=== PATIENT | male | born 1955 | race Caucasian/White ===

== ENCOUNTER 2017-06-08 13:43 | Emergency (ER) | payer OTHER ==
[~2017-06-08] VITALS: Ht 172.7 cm; Wt 79.4 kg
[~2017-06-08 13:43] MED LIST: BUPR100 PO; BUPR150ER PO; BUPR150T2 PO; Bactrim Ds Tab1 EACH PO; CALCIUM + D SO1 EACH PO; CEPH500 PO; CRUTCH3 USE; DIAZ5 PO; DICL75ER; DIPATR PO; DIPH50 PO; Desyrel50 MG; FAMO40 PO; HYDACE5 PO; HYDCHLSU PO; HYDPAM50 PO; IBUP200 PO; IBUP600 PO; Keflex500 MG PO; MELO7.5 PO; METPRE4DP PO; MIRT15 PO; MUPI2TC TOP; Motion Sickness25 M1 PO; NAPR500 PO; Norco 5-325 Ta1 EACH PO; OXYACE5T PO; OXYC10TA19 PO; OXYC30 PO; Oxycodone HCl5 M1 PO; PRAM.125 PO; PROM25 PO; Pepcid20 MG PO; Percocet 10-321 EACH PO; Percocet 5-3251 EACH PO; Prednisone20 MG PO; RXOXYACE PO; Robaxin500 MG PO; SULTRIDS PO; SULTRISS; TRAM50 PO; TRAZ100 PO; TRAZ50 PO; Ultram50 MG PO; Vitamin D400 UNI1 PO; ZOLP5 PO; Zofran Odt4 MG PO; Zofran Odt4 MG SL
[2017-06-08] MEDS ORDERED: ERYT1OIN BOTHEYES (14:42)
[2017-06-08] MEDS ORDERED: Percocet 5-3251 EACH PO (14:42)
== END 2017-06-08 14:58 | disposition home or self-care (01) ==
LOC: ER 13:43
DX: T26.12XA Burn of cornea and conjunctival sac, left eye, initial encounter (principal); T26.11XA Burn of cornea and conjunctival sac, right eye, initial encounter; X16.XXXA Contact with hot heating appliances, radiators and pipes, initial encounter
CPT/HCPCS: 36415; 96374; 96375; 99284; J1170; J2405

== ENCOUNTER 2017-06-11 11:14 | Emergency (ER) | payer OTHER ==
[~2017-06-11] VITALS: Ht 172.7 cm; Wt 79.4 kg
[~2017-06-11 11:14] MED LIST changes: +ERYT1OIN BOTHEYES
[2017-06-11] MEDS ORDERED: TRAZ150T57 (11:48)
[2017-06-11] MEDS ORDERED: Ventolin/Prove6.7 GM (11:48)
[2017-06-11 11:54] LABS: BASOPHILS ABSOLUTE AUTO 0.08 K/mm3 (0.00-0.23); BASOPHILS PERCENT AUTO 1 % (0-2); EOSINOPHILS ABSOLUTE AUTO 0.11 K/mm3 (0.00-0.68); EOSINOPHILS PERCENT AUTO 2 % (0-6); Hemoglobin 14.2 g/dL (13.5-17.5); IMMATURE GRAN ABSOLUTE AUTO 0.07 K/mm3 (0.00-0.10); IMMATURE GRAN PERCENT AUTO 1 % (0-1); LYMPHOCYTES ABSOLUTE AUTO 1.19 K/mm3 (0.84-5.20); LYMPHOCYTES PERCENT AUTO 19 % (21-46); MONOCYTES ABSOLUTE AUTO 0.62 K/mm3 (0.16-1.47); MONOCYTES PERCENT AUTO 10 % (4-13); Mean Corpuscular HGB 30.3 pg (26.0-34.0); Mean Corpuscular HGB Conc 33.8 g/dL (31.5-36.5); Mean Corpuscular Volume 90 fL (80-100); Mean Platelet Volume 8.7 fL (9.1-12.4); NEUTROPHILS ABSOLUTE AUTO 4.15 K/mm3 (1.96-9.15); NEUTROPHILS PERCENT AUTO 67 % (41-73); Platelet Count 322 K/mm3 (150-400); RDW Coefficient Variation 12.5 % (11.7-14.2); RDW Standard Deviation 40.4 fL (35.1-46.3); Red Blood Cell Count 4.69 M/mm3 (4.30-5.90); White Blood Cell Count 6.22 K/mm3 (4.00-11.30)
[2017-06-11 12:21] LABS: Troponin I <0.015 ng/mL (0.000-0.040)
[2017-06-11 12:24] LABS: Alanine Aminotransfer (ALT/SGP 62 U/L (12-78); Albumin, Blood 3.8 g/dL (3.4-5.0); Alk Phos 54 U/L (50-136); Anion Gap 7 mmol/L (6-16); Aspartate Aminotrans (AST/SGOT 39 U/L (12-37); Bilirubin, Total 0.4 mg/dL (0.1-1.0); Blood Urea Nitrogen 17 mg/dL (8-24); CO2, Blood 26 mmol/L (21-32); Calcium, Blood 8.7 mg/dL (8.5-10.1); Chloride, Blood 103 mmol/L (98-108); Creatinine, Blood 1.06 mg/dL (0.60-1.20); Glomerular Filtration Rate >60 (60-); Glucose, Blood 84 mg/dL (70-99); Potassium, Blood 4.6 mmol/L (3.5-5.5); Sodium, Blood 136 mmol/L (136-145); Total Protein, Blood 7.8 g/dL (6.4-8.2)
[2017-06-11] MEDS ORDERED: BENZ100A PO (13:50)
== END 2017-06-11 13:58 | disposition home or self-care (01) ==
LOC: ER 11:14
PROVIDERS: Emergency Medicine
DX: J11.1 Influenza due to unidentified influenza virus with other respiratory manifestations (principal); Z88.8 Allergy status to other drugs, medicaments and biological substances; Z88.5 Allergy status to narcotic agent; Z79.899 Other long term (current) drug therapy; F43.10 Post-traumatic stress disorder, unspecified; Z87.891 Personal history of nicotine dependence
CPT/HCPCS: 36415; 71046; 80053; 84484; 85025; 93005; 93010; 99284

== ENCOUNTER 2017-07-14 19:21 | Emergency (ER) | payer OTHER ==
[~2017-07-14] VITALS: Ht 172.7 cm; Wt 79.4 kg
[~2017-07-14 19:21] MED LIST changes: +BENZ100A PO; +Ventolin/Prove6.7 GM
[2017-07-14] MEDS ORDERED: Naprosyn500 MG PO (21:22)
== END 2017-07-14 21:29 | disposition home or self-care (01) ==
LOC: ER 19:21
DX: S80.02XA Contusion of left knee, initial encounter (principal); Z88.8 Allergy status to other drugs, medicaments and biological substances; Z88.5 Allergy status to narcotic agent; Z88.6 Allergy status to analgesic agent; Z79.899 Other long term (current) drug therapy; Z86.14 Personal history of Methicillin resistant Staphylococcus aureus infection; Z87.891 Personal history of nicotine dependence; W22.8XXA Striking against or struck by other objects, initial encounter; Y99.0 Civilian activity done for income or pay
CPT/HCPCS: 73090; 73562-LT; 99283

== ENCOUNTER 2017-12-23 12:46 | Emergency (ER) | payer OTHER ==
[~2017-12-23] VITALS: Ht 175.3 cm; Wt 79.4 kg
[~2017-12-23 12:46] MED LIST changes: +Naprosyn500 MG PO; +TRAZ150T57
[2017-12-23] MEDS ORDERED: Percocet 5-3251 EACH PO (14:21)
== END 2017-12-23 14:26 | disposition home or self-care (01) ==
LOC: ER 12:46
DX: S89.92XA Unspecified injury of left lower leg, initial encounter (principal); M17.12 Unilateral primary osteoarthritis, left knee; Z88.8 Allergy status to other drugs, medicaments and biological substances; Z88.5 Allergy status to narcotic agent; Z88.6 Allergy status to analgesic agent; Z79.899 Other long term (current) drug therapy; Z87.891 Personal history of nicotine dependence; X58.XXXA Exposure to other specified factors, initial encounter
CPT/HCPCS: 73564; 99283-25

== ENCOUNTER 2018-01-13 14:31 | Emergency (ER) | payer OTHER ==
[~2018-01-13] VITALS: Ht 175.3 cm; Wt 77.1 kg
[2018-01-13] MEDS ORDERED: Crutch1 EACH MISC (15:53)
== END 2018-01-13 16:00 | disposition home or self-care (01) ==
LOC: ER 14:31
DX: S90.32XA Contusion of left foot, initial encounter (principal); Z88.8 Allergy status to other drugs, medicaments and biological substances; Z88.5 Allergy status to narcotic agent; Z79.899 Other long term (current) drug therapy; W22.8XXA Striking against or struck by other objects, initial encounter; F43.10 Post-traumatic stress disorder, unspecified; Z87.891 Personal history of nicotine dependence; R26.2 Difficulty in walking, not elsewhere classified
CPT/HCPCS: 73630; 96372; 99283-25; J3010

== ENCOUNTER 2018-05-20 15:51 | Emergency (ER) | payer OTHER ==
[~2018-05-20] VITALS: Ht 175.3 cm; Wt 79.4 kg
[~2018-05-20 15:51] MED LIST changes: +Crutch1 EACH MISC; -TRAZ150T57; +Tylenol325 MG PO
[2018-05-20] MEDS ORDERED: Neurontin 100100 MG PO (16:47)
[2018-05-20] MEDS ORDERED: Percocet 5-3251 EACH PO (16:51)
[2018-06-04] MEDS ORDERED: OXYC15ER PO (10:43)
== END 2018-05-20 16:58 | disposition home or self-care (01) ==
LOC: ER 15:51
DX: M25.562 Pain in left knee (principal); F43.10 Post-traumatic stress disorder, unspecified; F17.220 Nicotine dependence, chewing tobacco, uncomplicated; Z88.0 Allergy status to penicillin; Z88.8 Allergy status to other drugs, medicaments and biological substances; Z88.6 Allergy status to analgesic agent; Z79.899 Other long term (current) drug therapy
CPT/HCPCS: 73562-LT; 99283-25

== ENCOUNTER 2018-06-11 14:26 | Day surgery (SDC) | payer OTHER ==
[~2018-06-11] VITALS: Ht 175.3 cm; Wt 82.6 kg
[~2018-06-11 14:26] MED LIST changes: +Neurontin 100100 MG PO; +OXYC15ER PO
== END 2018-06-11 16:43 | disposition home or self-care (01) ==
LOC: ORSCSDS 14:26
PROVIDERS: Ophthalmology
PROC: 08RK3JZ Replacement of Left Lens with Synthetic Substitute, Percutaneous Approach (ICD-10-PCS; principal; 2018-06-11 16:00)
DX: H25.12 Age-related nuclear cataract, left eye (principal)
CPT/HCPCS: J2001; J2250; J3010; J7120; V2632

== ENCOUNTER 2018-08-09 14:52 | Emergency (ER) | payer OTHER ==
[~2018-08-09] VITALS: Ht 172.7 cm; Wt 77.1 kg
[2018-08-09] MEDS ORDERED: Floxin10 ML RIGHTEAR (15:25)
[2018-08-09] MEDS ORDERED: CEFD300 PO (15:25)
== END 2018-08-09 15:29 | disposition home or self-care (01) ==
LOC: ER 14:52
DX: H60.91 Unspecified otitis externa, right ear (principal); H66.91 Otitis media, unspecified, right ear; Z88.0 Allergy status to penicillin; Z88.8 Allergy status to other drugs, medicaments and biological substances; Z88.5 Allergy status to narcotic agent; Z79.899 Other long term (current) drug therapy; F43.10 Post-traumatic stress disorder, unspecified; Z87.891 Personal history of nicotine dependence
CPT/HCPCS: 96372; 99282-25; J1885

== ENCOUNTER → 2019-06-24 | Outpatient (CLI) | payer OTHER ==
[~2019-06-24] MED LIST changes: +CEFD300 PO; +Floxin10 ML RIGHTEAR
[2019-07-03 07:09] LABS: ANABASINE <1 ng/mL (.); COTININE <10 ng/mL (.); NICOTINE <10 ng/mL (.)
== END | disposition home or self-care (01) ==
LOC: LAB SHORT 12:02 → LAB 12:02
PROVIDERS: Orthopaedic Surgery
DX: Z09 Encounter for follow-up examination after completed treatment for conditions other than malignant neoplasm (principal); Z87.891 Personal history of nicotine dependence
CPT/HCPCS: G0480

== ENCOUNTER 2019-09-27 08:21 | Day surgery (SDC) | payer OTHER ==
[~2019-09-27 08:21] MED LIST changes: +ASCO500 PO; +FOLBIC RF TABL1 EACH PO; +Glucosamine &1 EACH PO; +MELA3 PO; +ROPI1 PO
== END 2019-09-27 13:20 | disposition home or self-care (01) ==
PROVIDERS: Orthopaedic Surgery
PROC: 01X40Z4 Transfer Ulnar Nerve to Ulnar Nerve, Open Approach (ICD-10-PCS; principal; 2019-09-27 10:00)
PROC: 01N50ZZ Release Median Nerve, Open Approach (ICD-10-PCS; principal; 2019-09-27 10:00)
DX: G56.01 Carpal tunnel syndrome, right upper limb (principal); G56.21 Lesion of ulnar nerve, right upper limb; Z87.891 Personal history of nicotine dependence; B19.20 Unspecified viral hepatitis C without hepatic coma; Z79.899 Other long term (current) drug therapy

== ENCOUNTER 2019-11-29 12:00 | Day surgery (SDC) | payer OTHER ==
[~2019-11-29] VITALS: Ht 175.3 cm; Wt 83.4 kg
--- NOTE | 2019-11-29 14:07 | NUR ---
11/29/19 1407 Ely Riley PT REQUESTED TO USE URINAL; PROVIDED. 175CC OUT.
--- NOTE | 2019-11-29 14:53 | NUR ---
11/29/19 1453 Ciera Vallejo TWO SMALL ABRASIONS ON DORSAL SIDE OF OPERATIVE HAND, DR. MANE NOTIFIED, PER DR FERNANDEZ TO CONTINUE.
--- NOTE | 2019-11-29 15:51 | NUR ---
11/29/19 9341 BernardoJessica randhawa AFTER GETTING DRESSED PT. VERBALIZED HIS LEFT HAND WAS HURTING "PRETTY BAD." PT. INSTRUCTED COULD GIVE HIM A PAIN PILL IF HE STAYED AT LEAST 20 MIN TO MAKE SURE HE WOULDN'T HAVE A REACTION BUT PT.'S RIDE WAS HERE & PT. JUST CONTINUED TO WALK OUT THE DOOR. PT. GIVEN ANOTHER CUP OF COFFEE FOR WAY HOME.
== END 2019-11-29 15:39 | disposition home or self-care (01) ==
LOC: ORSCSDS 12:00
PROVIDERS: Orthopaedic Surgery
PROC: 01N50ZZ Release Median Nerve, Open Approach (ICD-10-PCS; principal; 2019-11-29 13:25)
DX: G56.02 Carpal tunnel syndrome, left upper limb (principal); B19.20 Unspecified viral hepatitis C without hepatic coma; F41.8 Other specified anxiety disorders; Z79.899 Other long term (current) drug therapy; F17.220 Nicotine dependence, chewing tobacco, uncomplicated
CPT/HCPCS: J0690; J2250; J3010; J3370; J7120

== ENCOUNTER 2021-02-21 11:01 | Day surgery (SDC) | payer OTHER ==
--- NOTE | 2020-12-13 10:23 | NUR ---
Patient's procedure was canncelled by Doctor Bauer, patient was late ariving to the hospital.
[~2021-02-21] VITALS: Ht 175.3 cm; Wt 85.5 kg
[~2021-02-21 11:01] MED LIST changes: +BUPROPION HCL100 MG PO; +OXYC10ER PO
--- NOTE | 2021-02-21 11:36 | NUR ---
Ambulatory in Day Surgery History, Chart, Medications and Allergies reviewed before start of procedure. Lungs clear T/O to Auscultation. Patient confirms NPO status and agrees with scheduled surgery. Pre-Op teaching done. Pt verbalizes understanding.
--- NOTE | 2021-02-21 16:44 | NUR ---
02/21/21 1644 Violeta Jones STITCH REMOVED FROM LEFT PROXIMAL PALM OF HAND AT 1430. HAND WAS PREPPED WITH CHLORAHEXIDINE AND DRESSED WITH 4X4 AND GAUZE
--- NOTE | 2021-02-21 18:45 | NUR ---
ARRIVAL TO UNIT ARRIVES TO UNIT VIA HOSPITAL BED. C/O HIGH PAIN TO L BROWN. ISH WRAP TO L SHINT TO THIGH HAS NO DRAINAGE. PPP. CAP REFIL < 3 SECONDS. DENIES NUMB/TING. VSS.
[2021-02-22 04:10] LABS: BASOPHILS ABSOLUTE AUTO 0.02 K/mm3 (0.00-0.23); BASOPHILS PERCENT AUTO 0 % (0-2); EOSINOPHILS PERCENT AUTO 0 % (0-6); Hematocrit 34.1 % (37.0-53.0); Hemoglobin 11.8 g/dL (13.5-17.5); IMMATURE GRAN ABSOLUTE AUTO 0.07 K/mm3 (0.00-0.10); IMMATURE GRAN PERCENT AUTO 1 % (0-1); LYMPHOCYTES ABSOLUTE AUTO 0.68 K/mm3 (0.84-5.20); LYMPHOCYTES PERCENT AUTO 5 % (21-46); MONOCYTES ABSOLUTE AUTO 0.95 K/mm3 (0.16-1.47); MONOCYTES PERCENT AUTO 7 % (4-13); Mean Corpuscular HGB 30.9 pg (26.0-34.0); Mean Corpuscular HGB Conc 34.6 g/dL (31.5-36.5); Mean Corpuscular Volume 89 fL (80-100); Mean Platelet Volume 9.7 fL (9.1-12.4); NEUTROPHILS ABSOLUTE AUTO 12.61 K/mm3 (1.96-9.15); NEUTROPHILS PERCENT AUTO 88 % (41-73); Platelet Count 247 K/mm3 (150-400); RDW Coefficient Variation 12.5 % (11.7-14.2); RDW Standard Deviation 40.3 fL (35.1-46.3); Red Blood Cell Count 3.82 M/mm3 (4.30-5.90); White Blood Cell Count 14.33 K/mm3 (4.00-11.30)
[2021-02-22 04:28] LABS: Anion Gap 6 mmol/L (6-16); Blood Urea Nitrogen 20 mg/dL (8-24); Bun/Creatinine Ratio 16.7 (12.0-20.0); CO2, Blood 23 mmol/L (21-32); Calcium, Blood 8.3 mg/dL (8.5-10.1); Chloride, Blood 107 mmol/L (98-108); Glomerular Filtration Rate >60 (60-); Glucose, Blood 129 mg/dL (70-99); Potassium, Blood 4.6 mmol/L (3.5-5.5); Sodium, Blood 136 mmol/L (136-145)
--- NOTE | 2021-02-22 07:04 | NUR ---
PT IS A/OX3. ABLE TO MAKE HIS NEEDS KNOWN. NO EVENTS OVER NIGHT. VOIDS W/O DIFFICULTY. BT'S POS X4, HYPO. MEDICATED FOR NAUSEA W/PRN REGLAN AND PHENERGAN. GOOD RESULTS. MEDICATED FOR PAIN W/PRN IV DILAUDID AND OXY. GOOD RESULTS. BULKY DRSG TO LT KNEE/LLE CDI. EPIFANIO HOSE BILAT. BOOT SCD'S ON. POLAR PACK IN PLACE TO LT KNEE.
[2021-02-22] MEDS ORDERED: Aspir 8181 MG PO (07:42)
[2021-02-22] MEDS ORDERED: SULTRIDS PO (07:42)
[2021-02-22] MEDS ORDERED: OXYC5 PO (07:43)
== END 2021-02-22 16:50 | disposition home or self-care (01) ==
LOC: ORSCMMR 11:01 → SURS 18:17 → ORSCMMR 02-22 16:50
PROVIDERS: Orthopaedic Surgery
PROC: 8E0YXBZ Computer Assisted Procedure of Lower Extremity (ICD-10-PCS; principal; 2021-02-21 14:00)
PROC: 0SRD0J9 Replacement of Left Knee Joint with Synthetic Substitute, Cemented, Open Approach (ICD-10-PCS; principal; 2021-02-21 14:00)
PROC: 0SPD04Z Removal of Internal Fixation Device from Left Knee Joint, Open Approach (ICD-10-PCS; principal; 2021-02-21 14:00)
DX: M17.12 Unilateral primary osteoarthritis, left knee (principal); B19.20 Unspecified viral hepatitis C without hepatic coma; Z79.899 Other long term (current) drug therapy
CPT/HCPCS: 36415; 73560-LT; 80048; 83735; 85025; 94762; 97110; 97110-CQ; 97116; 97116-CQ; 97162; 97530-CQ; A9270; C1713; C1776; J0171; J0360; J0690; J0735; J1100; J1170; J1885; J2250; J2405; J2550; J2704; J2765; J2795; J3010; J3370; J7120

== ENCOUNTER 2022-05-08 14:26 | Emergency (ER) | payer OTHER ==
[~2022-05-08] VITALS: Ht 175.3 cm; Wt 79.4 kg
[~2022-05-08 14:26] MED LIST changes: +Aspir 8181 MG PO; +LIDO700A20 TOP; +OXYC5 PO
[2022-05-08 15:53] LABS: Influenza A, PCR NEGATIVE (NEGATIVE); Influenza B, PCR NEGATIVE (NEGATIVE); SARS-Cov-2 (COVID-19) PCR, MMC NEGATIVE (NEGATIVE)
[2022-05-08 16:27] LABS: Resp Syncytial Virus, PCR POSITIVE (NEGATIVE)
== END 2022-05-08 17:52 | disposition home or self-care (01) ==
LOC: ER 14:26
PROVIDERS: Physician Assistant
DX: R05.9 Cough, unspecified (principal); B97.4 Respiratory syncytial virus as the cause of diseases classified elsewhere; F17.220 Nicotine dependence, chewing tobacco, uncomplicated; Z79.899 Other long term (current) drug therapy; Z79.82 Long term (current) use of aspirin; Z88.0 Allergy status to penicillin; Z88.5 Allergy status to narcotic agent; Z88.8 Allergy status to other drugs, medicaments and biological substances; Z88.6 Allergy status to analgesic agent; Z20.822 Contact with and (suspected) exposure to COVID-19
CPT/HCPCS: 0241U; 96372; 99283; J1885

== ENCOUNTER → 2022-05-22 | Outpatient (CLI) | payer MEDICARE ==
[2022-05-22 14:54] LABS: BASOPHILS ABSOLUTE AUTO 0.07 K/mm3 (0.00-0.23); BASOPHILS PERCENT AUTO 1 % (0-2); EOSINOPHILS ABSOLUTE AUTO 0.18 K/mm3 (0.00-0.68); EOSINOPHILS PERCENT AUTO 3 % (0-6); Hematocrit 43.1 % (37.0-53.0); Hemoglobin 14.8 g/dL (13.5-17.5); IMMATURE GRAN ABSOLUTE AUTO 0.02 K/mm3 (0.00-0.10); IMMATURE GRAN PERCENT AUTO 0 % (0-1); LYMPHOCYTES ABSOLUTE AUTO 1.16 K/mm3 (0.84-5.20); LYMPHOCYTES PERCENT AUTO 18 % (21-46); MONOCYTES PERCENT AUTO 8 % (4-13); Mean Corpuscular HGB 30.7 pg (26.0-34.0); Mean Corpuscular HGB Conc 34.3 g/dL (31.5-36.5); Mean Corpuscular Volume 89 fL (80-100); Mean Platelet Volume 10.3 fL (9.1-12.4); NEUTROPHILS ABSOLUTE AUTO 4.52 K/mm3 (1.96-9.15); NEUTROPHILS PERCENT AUTO 70 % (41-73); Platelet Count 307 K/mm3 (150-400); RDW Coefficient Variation 12.3 % (11.7-14.2); RDW Standard Deviation 40.7 fL (35.1-46.3); Red Blood Cell Count 4.82 M/mm3 (4.30-5.90); White Blood Cell Count 6.45 K/mm3 (4.00-11.30)
[2022-05-22 15:51] LABS: Alanine Aminotransfer (ALT/SGP 24 U/L (12-78); Alk Phos 66 U/L (50-136); Anion Gap 6 mmol/L (6-16); Aspartate Aminotrans (AST/SGOT 15 U/L (12-37); Bilirubin, Total 0.3 mg/dL (0.1-1.0); Blood Urea Nitrogen 16 mg/dL (8-24); Bun/Creatinine Ratio 15.8 (12.0-20.0); CO2, Blood 25 mmol/L (21-32); Calcium, Blood 9.3 mg/dL (8.5-10.1); Chloride, Blood 110 mmol/L (98-108); Cholesterol 158 mg/dL (50-200); Creatinine, Blood 1.01 mg/dL (0.60-1.20); Globulin, Blood 4.1 g/dL (2.2-4.0); Glomerular Filtration Rate 83 (60-); Glucose, Blood 114 mg/dL (70-99); HDL Cholesterol 40 mg/dL (>39); LDL/HDL RATIO 2.7; Low Density Lipoprotein Chol 109 mg/dL (0-110); Sodium, Blood 141 mmol/L (136-145); Thyroid Stimulating Hormone 0.853 uIU/mL (0.360-4.800); Total Protein, Blood 8.1 g/dL (6.4-8.2); Triglycerides 47 mg/dL (30-160); Very Low Density Lipoprot Chol 9 mg/dL (6-32)
[2022-05-23 10:10] LABS: HIV AB/P24 AG SCREEN Non Reactive (Non Reactive)
[2022-05-24 13:11] LABS: HEPATITIS C QUANTITATION HCV Not Detected IU/mL (.)
== END | disposition home or self-care (01) ==
LOC: LAB SHORT 12:58
PROVIDERS: Family Medicine
DX: Z13.6 Encounter for screening for cardiovascular disorders (principal); R53.83 Other fatigue; F19.11 Other psychoactive substance abuse, in remission; B19.20 Unspecified viral hepatitis C without hepatic coma; Z86.19 Personal history of other infectious and parasitic diseases
CPT/HCPCS: 80053; 80061; 84443; 85025; 87389

== ENCOUNTER 2022-05-27 21:11 | Emergency (ER) | payer MEDICARE, OTHER ==
[~2022-05-27] VITALS: Ht 175.3 cm; Wt 80.7 kg
[2022-05-27 21:52] LABS: BASOPHILS ABSOLUTE AUTO 0.07 K/mm3 (0.00-0.23); BASOPHILS PERCENT AUTO 1 % (0-2); EOSINOPHILS ABSOLUTE AUTO 0.39 K/mm3 (0.00-0.68); EOSINOPHILS PERCENT AUTO 5 % (0-6); Hematocrit 41.6 % (37.0-53.0); Hemoglobin 14.1 g/dL (13.5-17.5); IMMATURE GRAN ABSOLUTE AUTO 0.04 K/mm3 (0.00-0.10); IMMATURE GRAN PERCENT AUTO 1 % (0-1); LYMPHOCYTES ABSOLUTE AUTO 1.88 K/mm3 (0.84-5.20); LYMPHOCYTES PERCENT AUTO 22 % (21-46); MONOCYTES ABSOLUTE AUTO 0.79 K/mm3 (0.16-1.47); MONOCYTES PERCENT AUTO 9 % (4-13); Mean Corpuscular HGB 30.7 pg (26.0-34.0); Mean Corpuscular HGB Conc 33.9 g/dL (31.5-36.5); Mean Corpuscular Volume 91 fL (80-100); Mean Platelet Volume 9.7 fL (9.1-12.4); NEUTROPHILS ABSOLUTE AUTO 5.55 K/mm3 (1.96-9.15); NEUTROPHILS PERCENT AUTO 64 % (41-73); Platelet Count 295 K/mm3 (150-400); RDW Coefficient Variation 12.3 % (11.7-14.2); RDW Standard Deviation 40.9 fL (35.1-46.3); Red Blood Cell Count 4.59 M/mm3 (4.30-5.90); White Blood Cell Count 8.72 K/mm3 (4.00-11.30)
[2022-05-27] MEDS ORDERED: Cleocin HCl150 MG PO (21:57)
[2022-05-27] MEDS ORDERED: BACTRIM DS TAB1 EAC1 PO (21:57)
[2022-05-27 22:18] LABS: Bilirubin, Total 0.3 mg/dL (0.1-1.0); Bun/Creatinine Ratio 15.7 (12.0-20.0); Creatinine, Blood 1.08 mg/dL (0.60-1.20); Globulin, Blood 3.9 g/dL (2.2-4.0); Potassium, Blood 4.3 mmol/L (3.5-5.5); Total Protein, Blood 7.9 g/dL (6.4-8.2)
== END 2022-05-27 22:15 | disposition home or self-care (01) ==
LOC: ER 21:11
PROVIDERS: Student in an Organized Health Care Education/Training Program
DX: L03.113 Cellulitis of right upper limb (principal); F17.220 Nicotine dependence, chewing tobacco, uncomplicated; Z88.0 Allergy status to penicillin; Z88.5 Allergy status to narcotic agent; Z88.8 Allergy status to other drugs, medicaments and biological substances; Z79.899 Other long term (current) drug therapy; Z79.82 Long term (current) use of aspirin
CPT/HCPCS: 36415; 80053; 85025; A9270; J1885

== ENCOUNTER → 2023-10-30 | Outpatient (CLI) | payer MEDICARE, OTHER ==
[~2023-10-30] MED LIST changes: +BACTRIM DS TAB1 EAC1 PO; +Cleocin HCl150 MG PO
== END ==
LOC: LAB 13:06 → LAB SHORT 13:06
DX: R53.82 Chronic fatigue, unspecified (principal); R79.9 Abnormal finding of blood chemistry, unspecified
CPT/HCPCS: 82728

== ENCOUNTER → 2023-11-10 | Outpatient (CLI) | payer MEDICARE, OTHER ==
[2023-11-10 18:55] LABS: C-REACTIVE PROTEIN, EXT RANGE <0.290 mg/dL (0.000-0.300)
[2023-11-13 03:59] LABS: ANTI-NUCLEAR AB ANA,IGG ELISA None Detected (None Detected)
== END | disposition home or self-care (01) ==
LOC: LAB 17:40 → LAB SHORT 17:40
PROVIDERS: Family Medicine
DX: Z12.5 Encounter for screening for malignant neoplasm of prostate (principal); R53.81 Other malaise; R53.83 Other fatigue; R73.9 Hyperglycemia, unspecified; M25.50 Pain in unspecified joint
CPT/HCPCS: 83036; 85651; 86038; 86140; 86430; G0103

== ENCOUNTER 2024-04-19 09:27 | Emergency (ER) | payer MEDICARE, OTHER ==
[~2024-04-19] VITALS: Ht 175.3 cm; Wt 83.9 kg
[2024-04-19 10:03] VITALS: BP 150/71
[2024-04-19] MEDS ORDERED: HYDROmorphone HCl/Pf 1MG SYR IM ONE (11:25)
[2024-04-19] MEDS ORDERED: Norco 5-325 Ta1 EACH PO (11:41)
== END 2024-04-19 11:54 | disposition home or self-care (01) ==
LOC: ER 09:27
DX: M25.551 Pain in right hip (principal); F17.220 Nicotine dependence, chewing tobacco, uncomplicated; Z88.0 Allergy status to penicillin; Z88.5 Allergy status to narcotic agent; Z88.8 Allergy status to other drugs, medicaments and biological substances; Z88.6 Allergy status to analgesic agent; Z79.82 Long term (current) use of aspirin; Z79.899 Other long term (current) drug therapy; Z59.89 Other problems related to housing and economic circumstances; W20.8XXA Other cause of strike by thrown, projected or falling object, initial encounter
CPT/HCPCS: 71046; 73502; 96372; 99283-25; J1171

== ENCOUNTER 2025-02-28 10:38 | Day surgery (SDC) | payer MEDICARE, OTHER ==
[~2025-02-28] VITALS: Ht 175.3 cm; Wt 84.7 kg
[2025-02-28] MEDS ORDERED: MIRT15ST PO (11:19)
[2025-02-28] MEDS ORDERED: IBU800 M1 PO (11:20)
[2025-02-28] MEDS ORDERED: Budeprion Xl300 MG PO (11:20)
[2025-02-28] MEDS ORDERED: CeFAZolin Sodium 2,000 MG VIAL ONE (11:38)
[2025-02-28] MEDS ORDERED: Midazolam HCl 1MG / ML 2ML Vial ONE (12:19)
[2025-02-28] MEDS ORDERED: Bupivacaine 0.5% HCl 5 MG/ML 30MLVIAL ONE (12:20)
[2025-02-28] MEDS ORDERED: FentaNYL Citrate 50 MCG/ML 2 ML Injection ONE (12:35)
--- NOTE | 2025-02-28 12:47 | NUR ---
02/28/25 1247 Chyna Laureano 1235: TIMEOUT FOR BLOCK 1239: START OF BLOCK BY YESENIA FRY CRNA. 1242: AXILLARY BLOCK PROCEDURE COMPLETED BY YESENIA FRY CRNA. PT TOLERATED WELL. ON3 LPM OXYGEN DURING BLOCK VIA NC.
[2025-02-28] MEDS ORDERED: HYDROmorphone HCl/Pf 1MG SYR ONE (12:56)
[2025-02-28] MEDS ORDERED: Tranexamic Acid 100 ML IV ONE (13:56)
[2025-02-28] MEDS ORDERED: Dexamethasone Sod Phos 10 MG/ML 1ML VIAL ONE (14:00)
[2025-02-28] MEDS ORDERED: Ketorolac Tromethamine 30mg Vial ONE (14:00)
[2025-02-28] MEDS ORDERED: Ondansetron HCl 2 MG / ML 2ML Vial ONE (14:00)
--- NOTE | 2025-02-28 14:14 | NUR ---
02/28/25 1414 Tami Castrejon 1GM STARTED AT 1358 BY MO, [employer] SALES TECHNICIAN PER DR MARTINEZ REQUEST
--- NOTE | 2025-02-28 14:19 | NUR ---
02/28/25 1419 Georgie Avery REPORT RECEIVED FROM JIAN AND RN. PT ASLEEP UPON ARRIVAL, ON 10L NRB. VSS. CAP REFILL ON LEFT HAND <3 SECONDS, LEFT FINGERS PINK, WARM, DRY. UNABLE TO ASSESS LEFT RADIAL PULSE DUE TO DRESSING. SLING IN PLACE. PILLOW PLACED UNDER LEFT ARM.
--- NOTE | 2025-02-28 14:35 | NUR ---
02/28/25 1435 Georgie Avery pt brought to step down, pt reports has to urinate and attempting to get up out bed. rn x2 at bedside helping pt sit on edge of the bed while using urinal. pt urinated 300ml.
[2025-02-28 14:40] VITALS: BP 162/91
[2025-02-28] MEDS ORDERED: HYDROcodone 5-APAP 325 TAB ONE (14:47)
== END 2025-02-28 15:16 | disposition home or self-care (01) ==
LOC: ORSCSDS 10:38
PROVIDERS: Orthopaedic Surgery
PROC: 0PTN0ZZ Resection of Left Carpal, Open Approach (ICD-10-PCS; principal; 2025-02-28 12:00)
PROC: 01B40ZZ Excision of Ulnar Nerve, Open Approach (ICD-10-PCS; principal; 2025-02-28 12:00)
DX: M19.132 Post-traumatic osteoarthritis, left wrist (principal); Z87.891 Personal history of nicotine dependence; G47.33 Obstructive sleep apnea (adult) (pediatric)
CPT/HCPCS: 88304; 88311; A9270; J0166; J0690; J1100; J1171; J1885; J2250; J2405; J2704; J3010; J7120